=== PATIENT | male | born 1970 | race Two or more races ===

== ENCOUNTER 2018-12-06 15:01 | Emergency (ER) | payer OTHER ==
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
[2018-12-06] MEDS ORDERED: IBUPROFEN 600 MG TAB PO ONE (15:25)
[2018-12-06 16:58] VITALS: BP 119/78
== END 2018-12-06 16:58 | disposition home or self-care (01) ==
PROC: 0CQ0XZZ Repair Upper Lip, External Approach (ICD-10-PCS; principal; 2018-12-06)
DX: S01.511A Laceration without foreign body of lip, initial encounter (principal); M54.2 Cervicalgia; V18.0XXA Pedal cycle driver injured in noncollision transport accident in nontraffic accident, initial encounter; Y93.55 Activity, bike riding